=== PATIENT | female | born 1995 | race American Indian/Alaskan Native ===

== ENCOUNTER 2017-11-05 17:35 | Emergency (ER) | payer OTHER ==
[2017-11-05 18:04] VITALS: BP 123/72
[2017-11-05] MEDS ORDERED: TORADOL IM ONE (18:58)
--- NOTE | 2017-11-05 18:58 | Emergency Department Report ---
ED Back Pain/Injury HPI - General Chief Complaint: Back Pain/Injury Stated Complaint: MAJOR BACK PAIN Time Seen by Provider: 11/05/17 18:58 Source: patient Limitations: No Limitations - History of Present Illness Initial Comments: This is a 22-year-old female nontoxic, well nourished in appearance, no acute signs of distress presents to the ED with c/o of acute on chronic lower back pain. Patient stated that the past 3 days she was moving and developed this pain at work. Patient states has history of sciatica nerve pain which is similar symptoms as today. Patient states that pain radiates through to his left lower extremity. Patient denies any trauma. Denies any bladder or bowel instability. Patient denies any urinary symptoms. Denies any fever, chills, nausea, vomiting, headache, stiff neck, chest pain or shortness of breath. Patient denies any numbness or tingling. Denies any allergies. Denies significant past medical history. MD Complaint: back pain -: days(s) (3) Similar Symptoms Previously: Yes Place: work Radiation: left leg Severity: mild Severity scale (0 -10): 8 Quality: aching Consistency: constant Improves With: immobilization, supine, sitting upright Worsens With: movement, walking Context: while lifting, turning/twisting Associated Symptoms: denies other symptoms. denies: confusion, weakness, chest pain, numbness, difficulty walking, cough, difficulty urinating, diaphoresis, incontinence, fever/chills, constipation, headaches, abdominal pain, loss of appetite, malaise, nausea/vomiting, rash, seizure, shortness of breath, syncope - Related Data Previous Rx's Medication Instructions Recorded Last Taken Type Cyclobenzaprine [Flexeril] 10 mg PO QHS PRN #10 tablet 11/05/17 Unknown Rx Ibuprofen [Motrin] 600 mg PO Q8H PRN #30 tablet 11/05/17 Unknown Rx Allergies Allergy/AdvReac Type Severity Reaction Status Date / Time No Known Allergies Allergy Unverified 11/05/17 18:02 ED Review of Systems ROS: Stated complaint: MAJOR BACK PAIN Other details as noted in HPI Constitutional: denies: chills, fever Eyes: denies: eye pain, eye discharge, vision change ENT: denies: ear pain, throat pain Respiratory: denies: cough, shortness of breath, wheezing Cardiovascular: denies: chest pain, palpitations Endocrine: no symptoms reported Gastrointestinal: denies: abdominal pain, nausea, diarrhea Genitourinary: denies: urgency, dysuria, discharge Musculoskeletal: back pain. denies: joint swelling, arthralgia Skin: denies: rash, lesions Neurological: denies: headache, weakness, paresthesias Psychiatric: denies: anxiety, depression Hematological/Lymphatic: denies: easy bleeding, easy bruising ED Past Medical Hx - Past Medical History Previous Medical History?: No - Surgical History Past Surgical History?: No - Social History Smoking Status: Never Smoker Substance Use Type: None - Medications Home Medications: Home Medications Medication Instructions Recorded Confirmed Last Taken Type Cyclobenzaprine [Flexeril] 10 mg PO QHS PRN #10 tablet 11/05/17 Unknown Rx Ibuprofen [Motrin] 600 mg PO Q8H PRN #30 tablet 11/05/17 Unknown Rx ED Physical Exam - General Limitations: No Limitations General appearance: alert, in no apparent distress - Head Head exam: Present: atraumatic, normocephalic - Eye Eye exam: Present: normal appearance Pupils: Present: normal accommodation - ENT ENT exam: Present: normal exam, mucous membranes moist - Neck Neck exam: Present: normal inspection, full ROM - Respiratory Respiratory exam: Present: normal lung sounds bilaterally. Absent: respiratory distress - Cardiovascular Cardiovascular Exam: Present: regular rate, normal rhythm. Absent: systolic murmur, diastolic murmur, rubs, gallop - GI/Abdominal GI/Abdominal exam: Present: soft, normal bowel sounds - Extremities Exam Extremities exam: Present: normal inspection, full ROM, normal capillary refill. Absent: tenderness, joint swelling - Back Exam Back exam: Present: normal inspection, full ROM, paraspinal tenderness (lumbar paraspinal). Absent: tenderness, CVA tenderness (R), CVA tenderness (L), muscle spasm, vertebral tenderness, rash noted - Expanded Back Exam Expanded Back exam: Absent: saddle anesthesia Back exam: Negative Straight Leg Raising: Left, Right - Neurological Exam Neurological exam: Present: alert, oriented X3, normal gait - Psychiatric Psychiatric exam: Present: normal affect, normal mood - Skin Skin exam: Present: warm, dry, intact, normal color. Absent: rash ED Course Vital Signs 11/05/17 11/05/17 18:02 19:32 Temperature 98.5 F Pulse Rate 83 Respiratory 18 15 Rate Blood Pressure 123/72 O2 Sat by Pulse 100 Oximetry - Reevaluation(s) Reevaluation #1: 11/05/17 19:35 Patient is speaking in full sentences with no signs of distress noted. ED Medical Decision Making - Medical Decision Making This is a 22-year-old female that presents with low back strain. Patient is stable was examined by me. There is no spinal tenderness. There is no cauda equina syndrome during examination. No bladder or bowel instability. Patient received Toradol 30 mg IM in the ED which preceded his symptoms has resolved and subsided. Patient is discharged with muscle relaxant and Motrin. Patient was instructed not to operate any machinery while taking muscle relaxant as they cause her drowsiness. Patient was referred to Follow-up with a primary care doctor in 3-5 days or if symptoms worsen and continue return to emergency room as soon as possible. At time of discharge, the patient does not seem toxic or ill in appearance. No acute signs of distress noted. Patient agrees to discharge treatment plan of care. No further questions noted by the patient. This chart is dictated with using [employer] Critical care attestation.: If time is entered above; I have spent that time in minutes in the direct care of this critically ill patient, excluding procedure time. ED Disposition Clinical Impression: Low back strain Qualifiers: Encounter type: initial encounter Qualified Code(s): S39.012A - Strain of muscle, fascia and tendon of lower back, initial encounter Disposition: DC-01 TO HOME OR SELFCARE Is pt being admited?: No Does the pt Need Aspirin: No Condition: Stable Instructions: Low Back Strain (ED), Cyclobenzaprine (By mouth), Ibuprofen (By mouth) Additional Instructions: Follow-up with your primary care doctor in 3-5 days or if symptoms worsen such as bladder or bowel stability, chest pain, short of breath, numbness or tingling sensation in extremities, headache, dizziness, visual changes, nausea vomiting, or abdominal pain, return back to emergency room as was possible. Take ibuprofen and Flexeril as prescribed. Do not operate heavy machinery while taking Flexeril due to sedation Prescriptions: Cyclobenzaprine [Flexeril] 10 mg PO QHS PRN #10 tablet PRN Reason: Muscle Spasm Ibuprofen [Motrin] 600 mg PO Q8H PRN #30 tablet PRN Reason: Pain Referrals: PRIMARY CARE, [Primary Care Provider] - 3-5 Days ABHILASH VILLAREAL MD [Staff Physician] - 3-5 Days [facility] [Outside] - 3-5 Days [facility] [Outside] - 3-5 Days Forms: Work/School Release Form(ED)
== END 2017-11-05 19:45 | disposition home or self-care (01) ==
LOC: ED 17:35
DX: S39.012A Strain of muscle, fascia and tendon of lower back, initial encounter (principal); X58.XXXA Exposure to other specified factors, initial encounter; Y93.89 Activity, other specified; Y99.8 Other external cause status; Y92.89 Other specified places as the place of occurrence of the external cause
CPT/HCPCS: 99282; J1885

== ENCOUNTER 2020-05-08 07:37 | Emergency (ER) | payer OTHER ==
[2020-05-08] MEDS ORDERED: ONDANSETRON 4 MG/2 ML INJ IV ONE (08:30)
[2020-05-08 08:33] LABS: Hematocrit 29.3 % (30.3-42.9); Hemoglobin 9.8 gm/dl (10.1-14.3); Mean Corpuscular HGB Conc 34 % (30-34); Mean Corpuscular Volume 81 fl (79-97); Platelet Count 232 K/mm3 (140-440); Red Blood Count 3.62 M/mm3 (3.65-5.03); Red Cell Distribution Width 16.9 % (13.2-15.2)
[2020-05-08] MEDS ORDERED: SODIUM CHLORIDE 0.9% 1000 ML 1,000 ML IV ONE ×2 (08:34→10:27)
--- NOTE | 2020-05-08 08:38 | Emergency Department Report ---
HPI - General Chief Complaint: Vaginal Bleeding Time Seen by Provider: 05/08/20 08:22 - HPI HPI: This is a 24-year-old -Swiss female presents to the emergency department with a complaint of some abdominal and pelvic cramping, and vaginal bleeding. The patient took "an pill 2 weeks ago" when the patient was about 10 weeks at that time. She cannot remember the name of the medication but says she got it from the [facility] in [place]. Since taking that medication the patient has had moderate to heavy vaginal bleeding over the past 2 weeks and intermittent sharp cramping pains. The patient decided to come in to be seen today because she has started to feel lightheaded. She denies any other past medical history. With that she is or was G1, P0. Her primary care physician is a Dr. Bourgeois, but she has not seen them regarding her symptoms. She is a tobacco smoker. She has not taken anything for symptoms prior to presentation today. ED Past Medical Hx - Past Medical History Previous Medical History?: No - Surgical History Past Surgical History?: No - Social History Smoking Status: Current Every Day Smoker Substance Use Type: None - Medications Home Medications: Home Medications Medication Instructions Recorded Confirmed Last Taken Type Methylergonovine [Methergine] 0.2 mg PO Q6H #7 tablet 05/08/20 Unknown Rx ED Review of Systems ROS: Stated complaint: MORNING AFTER PILL/BLOOD LOST Other details as noted in HPI Comment: All other systems reviewed and negative Constitutional: denies: chills, fever Eyes: denies: eye pain, vision change ENT: denies: ear pain, throat pain Respiratory: denies: cough, shortness of breath Cardiovascular: denies: chest pain, palpitations Gastrointestinal: abdominal pain, nausea Genitourinary: other (vaginal bleeding, pelvic cramping). denies: dysuria, discharge Musculoskeletal: denies: back pain, arthralgia Skin: denies: rash, lesions Neurological: other (lightheaded). denies: headache Physical Exam - Physical Exam Vital Signs: Vital Signs 05/08/20 05/08/20 07:43 08:19 Temperature 98.5 F Pulse Rate 98 H 107 H Respiratory 20 16 Rate Blood Pressure 126/73 Blood Pressure 136/87 [Left] O2 Sat by Pulse 100 98 Oximetry Physical Exam: GENERAL: The patient is well-developed well-nourished. HENT: Normocephalic. Atraumatic. Patient has moist mucous membranes. EYES: Extraocular motions are intact. NECK: Supple. Trachea is midline. CHEST/LUNGS: Clear to auscultation. There is no respiratory distress noted. HEART/CARDIOVASCULAR: Regular. There is no tachycardia. There is no murmur. ABDOMEN: Abdomen is soft, nontender. No guarding. Patient has normal bowel sounds. SKIN: Skin is warm and dry. NEURO: The patient is awake, alert, and oriented. The patient is cooperative. The patient has no focal neurologic deficits. Normal speech. MUSCULOSKELETAL: There is no tenderness or deformity. There is no limitation range of motion. PELVIC: Moderate vaginal bleeding seen with clots. ED Course Vital Signs 05/08/20 05/08/20 07:43 08:19 Temperature 98.5 F Pulse Rate 98 H 107 H Respiratory 20 16 Rate Blood Pressure 126/73 Blood Pressure 136/87 [Left] O2 Sat by Pulse 100 98 Oximetry - Consultations Consultation #1: 05/08/20 11:52 I spoke with the [facility] on-call, Dr. Bingham, regarding the patient's presentation, lab and imaging results. She has recommended that the patient be prescribed Methergine 0.2 mg every 6 hours x 48 hours and then the patient can follow-up with Dr. Saint Mcguire in her office on Sunday. However the patient should return to the emergency department with any increased vaginal bleeding, worsening of her symptoms or any acute distress. ED Medical Decision Making - Lab Data Result diagrams: 05/08/20 10:17 05/08/20 08:21 Lab Results 05/08/20 05/08/20 05/08/20 Range/Units 08:21 08:21 08:21 WBC 12.3 H (4.5-11.0) K/mm3 RBC 3.62 L (3.65-5.03) M/mm3 Hgb 9.8 L (10.1-14.3) gm/dl Hct 29.3 L (30.3-42.9) % MCV 81 (79-97) fl MCH 27 L (28-32) pg MCHC 34 (30-34) % RDW 16.9 H (13.2-15.2) % Plt Count 232 (140-440) K/mm3 Lymph % (Auto) 12.8 L (13.4-35.0) % [place] % (Auto) 6.4 (0.0-7.3) % Eos % (Auto) 0.4 (0.0-4.3) % Baso % (Auto) 0.3 (0.0-1.8) % Lymph # (Auto) 1.5 (1.2-5.4) K/mm3 [place] # (Auto) 0.8 (0.0-0.8) K/mm3 Eos # (Auto) 0.0 (0.0-0.4) K/mm3 Baso # (Auto) 0.0 (0.0-0.1) K/mm3 Seg Neutrophils % 80.1 H (40.0-70.0) % Seg Neutrophils # 9.4 H (1.8-7.7) K/mm3 PT 13.7 (12.2-14.9) Sec. INR 1.07 (0.87-1.13) Sodium 133 L (137-145) mmol/L Potassium 3.7 (3.6-5.0) mmol/L Chloride 101.3 (98-107) mmol/L Carbon Dioxide 24 (22-30) mmol/L Anion Gap 11 mmol/L BUN 8 (7-17) mg/dL Creatinine 0.6 (0.6-1.2) mg/dL Estimated GFR > 60 ml/min BUN/Creatinine Ratio 13 % Glucose 123 H (65-100) mg/dL Calcium 8.6 (8.4-10.2) mg/dL HCG, Quant (0-4) mIU/mL Blood Type Ord Rhogam Gestat Weeks WEEKS 05/08/20 05/08/20 05/08/20 Range/Units 08:21 08:21 10:17 WBC (4.5-11.0) K/mm3 RBC (3.65-5.03) M/mm3 Hgb 8.7 L (10.1-14.3) gm/dl Hct 27.0 L (30.3-42.9) % MCV (79-97) fl MCH (28-32) pg MCHC (30-34) % RDW (13.2-15.2) % Plt Count (140-440) K/mm3 Lymph % (Auto) (13.4-35.0) % [place] % (Auto) (0.0-7.3) % Eos % (Auto) (0.0-4.3) % Baso % (Auto) (0.0-1.8) % Lymph # (Auto) (1.2-5.4) K/mm3 [place] # (Auto) (0.0-0.8) K/mm3 Eos # (Auto) (0.0-0.4) K/mm3 Baso # (Auto) (0.0-0.1) K/mm3 Seg Neutrophils % (40.0-70.0) % Seg Neutrophils # (1.8-7.7) K/mm3 PT (12.2-14.9) Sec. INR (0.87-1.13) Sodium (137-145) mmol/L Potassium (3.6-5.0) mmol/L Chloride (98-107) mmol/L Carbon Dioxide (22-30) mmol/L Anion Gap mmol/L BUN (7-17) mg/dL Creatinine (0.6-1.2) mg/dL Estimated GFR ml/min BUN/Creatinine Ratio % Glucose (65-100) mg/dL Calcium (8.4-10.2) mg/dL HCG, Quant 6759 H (0-4) mIU/mL Blood Type O POSITIVE Ord Rhogam Gestat Weeks Rh pos WEEKS - EKG Data -: EKG Interpreted by [place] EKG shows normal: sinus rhythm, axis, intervals, QRS complexes, ST-T waves Rate: normal - EKG Data When compared to previous EKG there are: previous EKG unavailable Interpretation: normal EKG - Radiology Data Radiology results: report reviewed ULTRASOUND OBSTETRIC INDICATION: Heavy vaginal bleeding, pill 2 weeks ago. TECHNIQUE: Transabdominal. COMPARISON: None available. FINDINGS: GESTATIONAL SAC: None seen. YOLK SAC: None seen. EMBRYO/FETUS: None seen. UTERUS/ADNEXA: The individual stripe is thickened and measures 22 mm with heterogeneous material noted along the endometrial canal, possibly representing blood products. No other significant abnormality. FREE FLUID: None. ADDITIONAL FINDINGS: None. IMPRESSION: 1. No intrauterine or ectopic is visualized sonographically. 2. Endometrial thickening with possible blood products along the endometrial canal. - Medical Decision Making This patient presents to the emergency department with a complaint of a 2-week history of vaginal bleeding and some pelvic cramping after taking an abortive pill 2 weeks ago. The patient was about 10 weeks at that time. The patient did have a moderate to large amount of vaginal bleeding upon arrival to the emergency department. Patient was given some IV fluid resuscitation, IV analgesia. Labs did show some anemia with an initial hemoglobin of 9.8 and the patient had a hemoglobin of 8.7, two hours later. Some of that drop in hemoglobin is due to her blood loss, but some of it is also dilutional after the patient received more than 1 L of IV fluid resuscitation. The patient had a beta-hCG of about 6500. A transvaginal/obstetrical ultrasound was completed that showed some blood products within the uterus but otherwise there were no retained products of conception, mass, or any other acute process seen. Patient was reevaluated multiple times over multiple hours and is feeling improved. The lightheadedness has resolved. The vaginal bleeding has slowed down to mild to moderate, and the patient's pelvic cramping appears to have improved if not resolved at this time. Vital signs have been reassuring throughout her ED course including being afebrile. As per the consultation section, I spoke with the [facility] on-call who recommends Methergine every 6 hours x48 hours and the patient can follow-up on Sunday in her clinic. She was given the first dose of Methergine in the emergency department. The patient has also been instructed to return to the closest emergency department with any increased vaginal bleeding, increased pelvic pain, worsening of her symptoms, or with any acute distress. All questions were answered and the patient understands and agrees to the plan. Critical Care Time: No Critical care attestation.: If time is entered above; I have spent that time in minutes in the direct care of this critically ill patient, excluding procedure time. ED Disposition Clinical Impression: Post- complication, Episode of heavy vaginal bleeding Anemia Qualifiers: Anemia type: unspecified type Qualified Code(s): D64.9 - Anemia, unspecified Disposition: DC-01 TO HOME OR SELFCARE Is pt being admited?: No Condition: Stable Instructions: Methylergonovine tablets, Abnormal Uterine Bleeding Additional Instructions: You received your first Methergine pill here today around 12 PM. Please start your prescription of Methergine at around 6 PM this evening. I have given you a referral for Dr. St Maynor, a local [facility], with whom I discussed your symptoms and emergency department course. Please follow-up with Dr. Bingham on Sunday. However, return to the closest emergency department with any increased vaginal bleeding, worsening of your symptoms, development of shortness of breath, or with any acute distress. Prescriptions: Methylergonovine [Methergine] 0.2 mg PO Q6H #7 tablet Referrals: JAMILA BINGHAM MD [Staff Physician] - 05/10/20 Time of Disposition: 11:56
[2020-05-08 08:47] LABS: INR 1.07 (0.87-1.13)
[2020-05-08 08:52] LABS: Blood Urea Nitrogen 8 mg/dL (7-17); Calcium 8.6 mg/dL (8.4-10.2); Hemolysis Index 11
[2020-05-08 08:54] LABS: BUN/Creatinine Ratio 13
[2020-05-08 08:57] LABS: Basophils % (Auto) 0.3 % (0.0-1.8); Eosinophils % (Auto) 0.4 % (0.0-4.3); Lymphocytes # (Auto) 1.5 K/mm3 (1.2-5.4); Lymphocytes % (Auto) 12.8 % (13.4-35.0); Monocytes # (Auto) 0.8 K/mm3 (0.0-0.8); Monocytes % (Auto) 6.4 % (0.0-7.3)
[2020-05-08] MEDS ORDERED: ACETAMINOPHEN 325 MG TAB PO ONE (09:51)
[2020-05-08] MEDS ORDERED: fentaNYL 100 MCG/2 ML INJ IV ONE ×2 (10:26→12:02)
[2020-05-08 10:35] LABS: Hemoglobin 8.7 gm/dl (10.1-14.3)
--- NOTE | 2020-05-08 11:15 | Ultrasound Report ---
ULTRASOUND OBSTETRIC INDICATION: Heavy vaginal bleeding, pill 2 weeks ago. TECHNIQUE: Transabdominal. COMPARISON: None available. FINDINGS: GESTATIONAL SAC: None seen. YOLK SAC: None seen. EMBRYO/FETUS: None seen. UTERUS/ADNEXA: The individual stripe is thickened and measures 22 mm with heterogeneous material note d along the endometrial canal, possibly representing blood products. No other significant abnormality . FREE FLUID: None. ADDITIONAL FINDINGS: None. IMPRESSION: 1. No intrauterine or ectopic is visualized sonographically. 2. Endometrial thickening with possible blood products along the endometrial canal. Signer Name: Boris Richards MD Signed: 05/08/2020 11:10 AM Workstation Name: [id number]
[2020-05-08 11:51] VITALS: BP 126/68
[2020-05-08] MEDS ORDERED: METHYLERGONOVINE 0.2 MG TABLET PO ONE (11:52)
== END 2020-05-08 12:15 | disposition home or self-care (01) ==
LOC: ED 07:37
DX: O03.80 Unspecified complication following complete or unspecified spontaneous abortion (principal); N93.9 Abnormal uterine and vaginal bleeding, unspecified; D64.9 Anemia, unspecified; F17.200 Nicotine dependence, unspecified, uncomplicated; Z79.899 Other long term (current) drug therapy
CPT/HCPCS: 36415; 76801; 80048; 84702; 85014; 85018; 85025; 85610; 86900; 86901; 93005; 96361; 96374; 96375; 96376; 99284; J2405; J3010; J7030

== ENCOUNTER 2020-06-02 07:52 | Day surgery (SDC) | payer OTHER ==
[~2020-06-02 07:52] MED LIST: LACTATED RINGERS 1,000 ML IV SCH; MIDAZOLAM 2 MG/2 ML INJ IV NR
[2020-06-02] MEDS ORDERED: ONDANSETRON 4 MG/2 ML INJ IV PRN (09:25)
[2020-06-02] MEDS ORDERED: fentaNYL 100 MCG/2 ML INJ IV PRN (09:25)
--- NOTE | 2020-06-02 09:25 | Anesthesia Consultation ---
Anesthesia Consult and Med Hx Date of service: 06/02/20 - Airway Anesthetic Teeth Evaluation: Good ROM Head & Neck: Adequate Mental/Hyoid Distance: Adequate Mallampati Class: Class II Intubation Access Assessment: Probably Good - Pre-Operative Health Status ASA Pre-Surgery Classification: ASA2 Proposed Anesthetic Plan: General - Pulmonary Hx Smoking: Yes Hx Respiratory Symptoms: No - Cardiovascular System Hx Hypertension: No - Central Nervous System CVA: No - Endocrine Hx Renal Disease: No Hx Liver Disease: No Hx Insulin Dependent Diabetes: No Hx Non-Insulin Dependent Diabetes: No Hx Thyroid Disease: No - Other Systems Hx Obesity: Yes (BMI 37) - Additional Comments Anesthesia Medical History Comments: No hx anesthetic complications.
--- NOTE | 2020-06-02 09:25 | Anesthesia Day of Surgery ---
Anesthesia Day of Surgery - Day of Surgery Patient Examined: Yes Patient H&P Reviewed: Yes Patient is NPO: Yes
--- NOTE | 2020-06-02 09:33 | Short Stay Summary ---
Short Stay Documentation Date of service: 06/02/20 Narrative H&P: 24-year-old -0-1-0 who is status post an elective termination. The patient had findings of continued vaginal bleeding after procedure and ultrasound findings consistent with retained products of conception. Patient elected to undergo surgical management. - History Principal diagnosis: Retained products of conception Past Medical History: No medical history Past Surgical History: Other ( termination) Social history: single - Allergies and Medications Current Medications: Allergies No Known Allergies Allergy (Verified 06/01/20 08:17) Home Medications Medication Instructions Recorded Confirmed Last Taken Type Ferrous Sulfate [Feosol] 325 mg PO BID 06/01/20 06/02/20 3 Days Ago History ~05/30/20 Active Medications Fentanyl (Fentanyl 100 Mcg/2 Ml Inj) 50 mcg IV Q5MIN PRN PRN Reason: Pain , Severe (7-10) Lactated Ringer's (Lactated Ringers) 1,000 mls @ 100 mls/hr IV DIRECT DELIA Stop: 06/02/20 23:59 Last Admin: 06/02/20 09:10 Dose: 100 mls/hr Documented by: Midazolam HCl (Midazolam 2 Mg/2 Ml Inj) 2 mg IV PREOP NR Stop: 06/02/20 23:00 Last Admin: 06/02/20 09:23 Dose: 2 mg Documented by: Ondansetron HCl (Ondansetron 4 Mg/2 Ml Inj) 4 mg IV ONCE PRN PRN Reason: Nausea And Vomiting - Physical exam General appearance: no acute distress Integumentary: no rash HEENT: Atraumatic Lungs: Clear to auscultation Breasts: deferred Heart: Regular rate Gastrointestinal: normal Female Genitourinary: deferred - Brief post op/procedure progress note Date of procedure: 06/02/20 Pre-op diagnosis: Retained products of conception Post-op diagnosis: same Procedure: Suction dilatation and curettage Anesthesia: MAC Surgeon: JAMILA SHAW Estimated blood loss: other (300 mL) Pathology: list (Retained products of conception) Specimen disposition: to lab Condition: stable - Hospital course Hospital course: The patient was admitted the day of surgery was scheduled to undergo a suction dilatation and curettage for retained products of conception. The patient's preoperative hemoglobin was found to be significantly anemic requiring the transfusion of 2 units of blood products. The patient underwent her surgery and her postoperative course was uneventful. - Disposition Condition at discharge: Good Disposition: DC-01 TO HOME OR SELFCARE - Discharge Diagnoses (1) Retained products of conception Status: Acute (2) Anemia associated with acute blood loss Status: Acute Short Stay Discharge Plan Activity: other (Pelvic rest for 1 week) Diet: regular Additional Instructions: Schedule follow-up in 2 to 4 weeks Prescriptions: Docusate Sodium [Colace] 100 mg PO BID PRN #30 capsule PRN Reason: Constipation Ferrous Sulfate [Feosol 325 MG tab] 325 mg PO BID #60 tablet Ibuprofen [Motrin] 800 mg PO Q8HR PRN #30 tablet PRN Reason: Pain , Severe (7-10) HYDROcodone/APAP 5-325 [[place] 5/325] 1 each PO Q6HR PRN #15 tablet PRN Reason: Pain
[2020-06-02 09:39] LABS: Mean Corpuscular HGB Conc 32 % (30-34); Mean Corpuscular Volume 72 fl (79-97); Platelet Count 294 K/mm3 (140-440); Red Blood Count 1.98 M/mm3 (3.65-5.03)
[2020-06-02 09:46] LABS: Red Cell Distribution Width 21.3 % (13.2-15.2)
[2020-06-02 09:50] LABS: Hematocrit 14.2 % (30.3-42.9); Hemoglobin 4.5 gm/dl (10.1-14.3)
[2020-06-02] MEDS ORDERED: SODIUM CHLORIDE 0.9% 500 ML 500 ML IV NR (09:54)
[2020-06-02] MEDS ORDERED: fentaNYL 100 MCG/2 ML INJ ONE ×2 (10:35→11:22)
[2020-06-02] MEDS ORDERED: propofoL 200 MG/20 ML VIAL IV ONE (10:35)
[2020-06-02] MEDS ORDERED: LIDOCAINE PF 100 MG/5 ML (CARDIAC SYRINGE) IV ONE (10:44)
[2020-06-02] MEDS ORDERED: ONDANSETRON 4 MG/2 ML INJ ONE (11:01)
[2020-06-02] MEDS ORDERED: dexAMETHasone 20 MG/5 ML VIAL ONE (11:01)
[2020-06-02] MEDS ORDERED: METHYLERGONOVINE MALEATE 0.2 MG/ML VIAL IM ONE ×2 (11:18→11:47)
--- NOTE | 2020-06-02 11:36 | Operative Report ---
Operative Report Operative Report: Date of surgery: June 02, 2020 Preoperative diagnosis: Retained products of conception Postoperative diagnosis: Same as above Procedure: Suction dilatation and curettage Surgeon: Laurie Andrew M.D. Anesthesia: Gen. endotracheal anesthesia Estimated blood loss: 300 mL Findings: Products of conception Indication: 24-year-old -0-1-0 with a history of a termination that is complicated by findings of retained products of conception and abnormal uterine bleeding. The patient's preoperative hemoglobin was found to be 4.5. The patient was transfused 2 units packed red blood cells. Procedure: The patient was taken to the operating room and given general endotracheal anesthesia without complication. The patient is prepped and draped in a normal sterile fashion. A bivalve speculum was placed in the patient's vagina and a single-tooth tenaculums placed on the anterior lip of the cervix. The uterine cavity was then sounded. The cervical os was then dilated with graduated dilators. A number 8 [place] curved cannula was placed to suction and found to be adequate. The cannula was then gently inserted into the dilated cervical os. Evacuation of the uterine contents were performed. Sharp curettage and endometrial surface was performed until cry was achieved. The cannula was then gently reinserted into the uterine cavity to evacuate any additional contents. After removal of the cannula there was no evidence of any active bleeding. The vaginal instruments were then removed atraumatically. The patient was then successfully extubated and taken to the recovery room in stable condition. All sponge laps and needle counts were correct x2. Pathology consi sted of products of conception.
[2020-06-02] MEDS ORDERED: SODIUM CHLORIDE 0.9% IRR 1,500 ML BOTTLE IR ONE (11:47)
[2020-06-02 13:26] VITALS: BP 133/73
--- NOTE | 2020-06-02 15:18 | Post Anesthesia Evaluation ---
- Post Anesthesia Evaluation Patient Participated: Yes Airway Patent: Yes Stable Respiratory Function: Yes Nausea/Vomiting: No Temp > 96.8F: Yes Pain Manageable: Yes Adequeate Hydration: Yes Anesthesia Complications: No Other Comments: Received 2 units pRBCs in PACU with increase in BP and resolution of low grade tachycardia noted.
== END 2020-06-02 14:05 | disposition home or self-care (01) ==
LOC: OR 07:52
PROVIDERS: ATTEND Obstetrics & Gynecology
DX: O02.89 Other abnormal products of conception (principal); F17.210 Nicotine dependence, cigarettes, uncomplicated; D62 Acute posthemorrhagic anemia; G43.909 Migraine, unspecified, not intractable, without status migrainosus; Z79.899 Other long term (current) drug therapy; Z98.890 Other specified postprocedural states
CPT/HCPCS: 36415; 59812; 85027; 86850; 86900; 86901; 86920; 88305; J1100; J2001; J2210; J2250; J2405; J2704; J3010; J7040; J7120; P9016

== ENCOUNTER 2020-06-24 22:16 | Emergency (ER) | payer OTHER ==
[2020-06-24 23:10] VITALS: BP 125/61
[2020-06-24 23:44] LABS: Bacteria,Urine 1+ /HPF (Negative); Bilirubin,Urine NEG (Negative); Blood,Urine NEG (Negative); Color,Urine Yellow (Yellow); Mucus,Urine FEW /HPF; Protein,Urine <15 mg/dL mg/dL (Negative)
[2020-06-24 23:45] LABS: HCG Qualitative,Urine Negative (Negative)
[2020-06-24 23:54] LABS: Basophils # (Auto) 0.1 K/mm3 (0.0-0.1); Basophils % (Auto) 0.9 % (0.0-1.8); Eosinophils # (Auto) 0.1 K/mm3 (0.0-0.4); Eosinophils % (Auto) 1.5 % (0.0-4.3); Hematocrit 25.4 % (30.3-42.9); Hemoglobin 7.6 gm/dl (10.1-14.3); Lymphocytes % (Auto) 32.5 % (13.4-35.0); Mean Corpuscular HGB Conc 30 % (30-34); Mean Corpuscular Volume 71 fl (79-97); Monocytes # (Auto) 0.8 K/mm3 (0.0-0.8); Monocytes % (Auto) 8.5 % (0.0-7.3); Platelet Count 385 K/mm3 (140-440); Red Blood Count 3.58 M/mm3 (3.65-5.03)
[2020-06-25 00:07] LABS: Red Cell Distribution Width 24.2 % (13.2-15.2)
[2020-06-25] MEDS ORDERED: HYDROcodone/ACETAMINOPHEN 10-325MG TAB PO ONE (00:16)
[2020-06-25 00:28] LABS: Alanine Aminotransferase 11 units/L (7-56); Albumin 4.2 g/dL (3.9-5); BUN/Creatinine Ratio 16; Blood Urea Nitrogen 11 mg/dL (7-17); Calcium 8.8 mg/dL (8.4-10.2); Hemolysis Index 0
--- NOTE | 2020-06-25 00:31 | Emergency Department Report ---
ED Abdominal Pain HPI - General Chief Complaint: Abdominal Pain Stated Complaint: RIGHT SIDE PAIN Time Seen by Provider: 06/25/20 00:10 Source: patient Mode of arrival: Ambulatory Limitations: No Limitations - History of Present Illness Initial Comments: This is a 24-year-old female nontoxic, well nourished in appearance, no acute signs of distress presents to the ED with c/o of intermittent RUQ pains x several days. Patient denies any nausea vomiting. Patient describes abdominal pain as cramping and aching with level of 3/10 intermittently. Currently patient denies any pain. Stated has radiation during pain to right flank area. Patient denies chest pain, short of breath, fever, nausea, vomiting, diarrhea, hemoptysis, blood in stool, chills, headache, stiff neck, numbness or tingling. Patient denies any diarrhea or constipation. Denies any blood in stool. Patient denies any recent travels. Patient denies any allergies or significant past medical history MD Complaint: abdominal pain Location: RUQ Radiation: R flank Severity: mild Severity scale (0 -10): 3 Quality: cramping Consistency: intermittent, now resolved Improves With: nothing Worsens With: nothing Associated Symptoms: denies other symptoms. denies: nausea, vomiting, diarrhea, fever, chills, constipation, dysuria, hematemesis, hematochezia, melena, hematuria, anorexia, syncope - Related Data Home Medications Medication Instructions Recorded Confirmed Last Taken Ferrous Sulfate [Feosol] 325 mg PO BID 06/01/20 06/02/20 3 Days Ago ~05/30/20 Previous Rx's Medication Instructions Recorded Last Taken Type Docusate Sodium [Colace] 100 mg PO BID PRN #30 capsule 06/02/20 Unknown Rx Ferrous Sulfate [Feosol 325 MG tab] 325 mg PO BID #60 tablet 06/02/20 Unknown Rx HYDROcodone/APAP 5-325 [[place] 1 each PO Q6HR PRN #15 tablet 06/02/20 Unknown Rx 5/325] Ibuprofen [Motrin] 800 mg PO Q8HR PRN #30 tablet 06/02/20 Unknown Rx Naproxen 500 mg PO Q12H PRN #12 tablet 06/25/20 Unknown Rx Allergies Allergy/AdvReac Type Severity Reaction Status Date / Time No Known Allergies Allergy Verified 06/01/20 08:17 ED Review of Systems ROS: Stated complaint: RIGHT SIDE PAIN Other details as noted in HPI Comment: All other systems reviewed and negative Constitutional: denies: chills, fever Eyes: denies: eye pain, eye discharge, vision change ENT: denies: ear pain, throat pain Respiratory: denies: cough, shortness of breath, wheezing Cardiovascular: denies: chest pain, palpitations Endocrine: no symptoms reported Gastrointestinal: abdominal pain. denies: nausea, vomiting, diarrhea, constipation, hematemesis, melena, hematochezia Genitourinary: denies: urgency, dysuria, discharge Musculoskeletal: denies: back pain, joint swelling, arthralgia Skin: denies: rash, lesions Neurological: denies: headache, weakness, paresthesias Psychiatric: denies: anxiety, depression Hematological/Lymphatic: denies: easy bleeding, easy bruising ED Past Medical Hx - Past Medical History Previous Medical History?: Yes Hx Hypertension: No Hx Liver Disease: No Hx Renal Disease: No Hx Headaches / Migraines: Yes (Migraines) - Surgical History Past Surgical History?: Yes Additional Surgical History: D&C - Social History Smoking Status: Current Every Day Smoker Substance Use Type: Marijuana - Medications Home Medications: Home Medications Medication Instructions Recorded Confirmed Last Taken Type Ferrous Sulfate [Feosol] 325 mg PO BID 06/01/20 06/02/20 3 Days Ago History ~05/30/20 Docusate Sodium [Colace] 100 mg PO BID PRN #30 capsule 06/02/20 Unknown Rx Ferrous Sulfate [Feosol 325 MG tab] 325 mg PO BID #60 tablet 06/02/20 Unknown Rx HYDROcodone/APAP 5-325 [[place] 1 each PO Q6HR PRN #15 tablet 06/02/20 Unknown Rx 5/325] Ibuprofen [Motrin] 800 mg PO Q8HR PRN #30 tablet 06/02/20 Unknown Rx Naproxen 500 mg PO Q12H PRN #12 tablet 06/25/20 Unknown Rx ED Physical Exam - General Limitations: No Limitations General appearance: alert, in no apparent distress - Head Head exam: Present: atraumatic, normocephalic - Eye Eye exam: Present: normal appearance - Neck Neck exam: Present: normal inspection, full ROM. Absent: tenderness, men ingismus, lymphadenopathy - Respiratory Respiratory exam: Present: normal lung sounds bilaterally. Absent: respiratory distress, wheezes, rales, rhonchi, stridor, chest wall tenderness, accessory muscle use, decreased breath sounds, prolonged expiratory - Cardiovascular Cardiovascular Exam: Present: regular rate, normal rhythm, normal heart sounds. Absent: bradycardia, tachycardia, irregular rhythm, systolic murmur, diastolic murmur, rubs, gallop - GI/Abdominal GI/Abdominal exam: Present: soft, normal bowel sounds. Absent: distended, tenderness, guarding, rebound, rigid, diminished bowel sounds - Extremities Exam Extremities exam: Present: normal inspection, full ROM - Back Exam Back exam: Present: normal inspection, full ROM. Absent: tenderness, CVA tenderness (R), CVA tenderness (L), muscle spasm, paraspinal tenderness, vertebral tenderness, rash noted - Neurological Exam Neurological exam: Present: alert, oriented X3, normal gait - Psychiatric Psychiatric exam: Present: normal affect, normal mood - Skin Skin exam: Present: warm, dry, intact, normal color. Absent: rash ED Course Vital Signs 06/24/20 23:06 Temperature 99.4 F Pulse Rate 85 Respiratory 18 Rate Blood Pressure 125/61 O2 Sat by Pulse 100 Oximetry - Reevaluation(s) Reevaluation #1: 06/25/20 00:31 Patient is speaking in full sentences with no signs of distress noted. ED Medical Decision Making - Lab Data Result diagrams: 06/24/20 23:28 06/24/20 23:28 Lab Results 06/24/20 06/24/20 06/24/20 Range/Units 23:22 23:28 23:28 WBC 9.1 (4.5-11.0) K/mm3 RBC 3.58 L (3.65-5.03) M/mm3 Hgb 7.6 L (10.1-14.3) gm/dl Hct 25.4 L (30.3-42.9) % MCV 71 L (79-97) fl MCH 21 L (28-32) pg MCHC 30 (30-34) % RDW 24.2 H (13.2-15.2) % Plt Count 385 (140-440) K/mm3 Lymph % (Auto) 32.5 (13.4-35.0) % [place] % (Auto) 8.5 H (0.0-7.3) % Eos % (Auto) 1.5 (0.0-4.3) % Baso % (Auto) 0.9 (0.0-1.8) % Lymph # (Auto) 3.0 (1.2-5.4) K/mm3 [place] # (Auto) 0.8 (0.0-0.8) K/mm3 Eos # (Auto) 0.1 (0.0-0.4) K/mm3 Baso # (Auto) 0.1 (0.0-0.1) K/mm3 Seg Neutrophils % 56.6 (40.0-70.0) % Seg Neutrophils # 5.2 (1.8-7.7) K/mm3 Sodium 139 (137-145) mmol/L Potassium 4.2 (3.6-5.0) mmol/L Chloride 103.3 (98-107) mmol/L Carbon Dioxide 26 (22-30) mmol/L Anion Gap 14 mmol/L BUN 11 (7-17) mg/dL Creatinine 0.7 (0.6-1.2) mg/dL Estimated GFR > 60 ml/min BUN/Creatinine Ratio 16 % Glucose 79 (65-100) mg/dL Calcium 8.8 (8.4-10.2) mg/dL Total Bilirubin 0.20 (0.1-1.2) mg/dL AST 14 (5-40) units/L ALT 11 (7-56) units/L Alkaline Phosphatase 77 (35-129) units/L Total Protein 7.4 (6.3-8.2) g/dL Albumin 4.2 (3.9-5) g/dL Albumin/Globulin Ratio 1.3 % Lipase 19 (13-60) units/L HCG, Quant (0-4) mIU/mL Urine Color Yellow (Yellow) Urine Turbidity Clear (Clear) Urine pH 7.0 (5.0-7.0) Ur Specific [place] 1.021 (1.003-1.030) Urine Protein <15 mg/dl (Negative) mg/dL Urine Glucose (UA) Neg (Negative) mg/dL Urine Ketones Neg (Negative) mg/dL Urine Blood Neg (Negative) Urine Nitrite Neg (Negative) Urine Bilirubin Neg (Negative) Urine Urobilinogen 4.0 (<2.0) mg/dL Ur Leukocyte Esterase Tr (Negative) Urine WBC (Auto) 1.0 (0.0-6.0) /HPF Urine RBC (Auto) 1.0 (0.0-6.0) /HPF U Epithel Cells (Auto) 4.0 (0-13.0) /HPF Urine Bacteria (Auto) 1+ (Negative) /HPF Urine Mucus Few /HPF Urine HCG, Qual Negative (Negative) 06/24/20 Range/Units 23:28 WBC (4.5-11.0) K/mm3 RBC (3.65-5.03) M/mm3 Hgb (10.1-14.3) gm/dl Hct (30.3-42.9) % MCV (79-97) fl MCH (28-32) pg MCHC (30-34) % RDW (13.2-15.2) % Plt Count (140-440) K/mm3 Lymph % (Auto) (13.4-35.0) % [place] % (Auto) (0.0-7.3) % Eos % (Auto) (0.0-4.3) % Baso % (Auto) (0.0-1.8) % Lymph # (Auto) (1.2-5.4) K/mm3 [place] # (Auto) (0.0-0.8) K/mm3 Eos # (Auto) (0.0-0.4) K/mm3 Baso # (Auto) (0.0-0.1) K/mm3 Seg Neutrophils % (40.0-70.0) % Seg Neutrophils # (1.8-7.7) K/mm3 Sodium (137-145) mmol/L Potassium (3.6-5.0) mmol/L Chloride (98-107) mmol/L Carbon Dioxide (22-30) mmol/L Anion Gap mmol/L BUN (7-17) mg/dL Creatinine (0.6-1.2) mg/dL Estimated GFR ml/min BUN/Creatinine Ratio % Glucose (65-100) mg/dL Calcium (8.4-10.2) mg/dL Total Bilirubin (0.1-1.2) mg/dL AST (5-40) units/L ALT (7-56) units/L Alkaline Phosphatase (35-129) units/L Total Protein (6.3-8.2) g/dL Albumin (3.9-5) g/dL Albumin/Globulin Ratio % Lipase (13-60) units/L HCG, Quant < 2 (0-4) mIU/mL Urine Color (Yellow) Urine Turbidity (Clear) Urine pH (5.0-7.0) Ur Specific [place] (1.003-1.030) Urine Protein (Negative) mg/dL Urine Glucose (UA) (Negative) mg/dL Urine Ketones (Negative) mg/dL Urine Blood (Negative) Urine Nitrite (Negative) Urine Bilirubin (Negative) Urine Urobilinogen (<2.0) mg/dL Ur Leukocyte Esterase (Negative) Urine WBC (Auto) (0.0-6.0) /HPF Urine RBC (Auto) (0.0-6.0) /HPF U Epithel Cells (Auto) (0-13.0) /HPF Urine Bacteria (Auto) (Negative) /HPF Urine Mucus /HPF Urine HCG, Qual (Negative) - Radiology Data [facility] [address] [place] [address] Ultrasound Report Signed Patient: SIMIN SALDANA MR#: [id number] : 1995 Acct:[id number] Age/Sex: 24 / F ADM Date: 06/24/20 Loc: ED Attending Dr: Ordering Physician: EDWIN LAURENT NP Date of Service: 06/25/20 Procedure(s): US abdomen complete Accession Number(s): [id number] cc: EDWIN LAURENT NP US abdomen complete INDICATION / CLINICAL INFORMATION: abd pain. COMPARISON: None available. FINDINGS: Liver, spleen and pancreas are unremarkable. Kidneys and abdominal aorta are negative. Gallbladder is not at all well distended and so very poorly imaged. Apparent gallbladder wall thickening is probably due to lack of distention. No large calculi. Common duct is normal in size. IMPRESSION: 1. No definite abnormalities identified. As described, the gallbladder is not at all well studied due to lack of distention. If gallbladder disease is suspected, I would suggest reexamination with the patient n.p.o. for at least 6 hours. Signer Name: Turner Babcock MD Signed: 06/25/2020 1:17 AM Workstation Name: [id number] Transcribed By: TM Dictated By: Turner Babcock MD Electronically Authenticated By: Turner Babcock MD Signed Date/Time: 06/25/20116 DD/ 1 TD/TT: - Medical Decision Making This is a 24-year-old female that presents with abdominal pain mostly secondary gallbladder stones. Patient is stable and was examined by me. There is no abdominal tenderness. Negative signs of symptoms of appendicitis. Labs obta ined. UA obtained. US of abdomen obtained and dictated by the radiologist. Patient is notified of the report with no questions noted by the patient. Vital signs are stable prior to discharge. Patient was also instructed to Follow-up with a primary care doctor in 3-5 days or if symptoms worsen and continue return to emergency room as soon as possible. At time of discharge, the patient does not seem toxic or ill in appearance. No acute signs of distress noted. Patient agrees to discharge treatment plan of care. No further questions noted by the patient. Critical care attestation.: If time is entered above; I have spent that time in minutes in the direct care of this critically ill patient, excluding procedure time. ED Disposition Clinical Impression: Abdominal pain Qualifiers: Abdominal location: right upper quadrant Qualified Code(s): R10.11 - Right upper quadrant pain Disposition: DC-01 TO HOME OR SELFCARE Is pt being admited?: No Does the pt Need Aspirin: No Condition: Stable Instructions: Abdominal Pain (ED) Additional Instructions: Follow-up with a primary care doctor in 3-5 days or if symptoms worsen and continue return to emergency room as soon as possible. Prescriptions: Naproxen 500 mg PO Q12H PRN #12 tablet PRN Reason: Pain , Severe (7-10) Referrals: SPENCER PENNINGTON [Primary Care Provider] - 3-5 Days PRIMARY CAREMD [Referring] - 3-5 Days HILDA MOSCOSO MD [Staff Physician] - 3-5 Days Forms: Work/School Release Form(ED) Time of Disposition: 01:25
--- NOTE | 2020-06-25 01:21 | Ultrasound Report ---
US abdomen complete INDICATION / CLINICAL INFORMATION: abd pain. COMPARISON: None available. FINDINGS: Liver, spleen and pancreas are unremarkable. Kidneys and abdominal aorta are negative. Gallbladder is not at all well distended and so very poorly imaged. Apparent gallbladder wall thicken ing is probably due to lack of distention. No large calculi. Common duct is normal in size. IMPRESSION: 1. No definite abnormalities identified. As described, the gallbladder is not at all well studied due to lack of distention. If gallbladder disease is suspected, I would suggest reexamination with the p atient n.p.o. for at least 6 hours. Signer Name: Turner Babcock MD Signed: 06/25/2020 1:17 AM Workstation Name: [id number]
== END 2020-06-25 01:30 | disposition home or self-care (01) ==
LOC: ED 22:16
DX: R10.11 Right upper quadrant pain (principal); G43.909 Migraine, unspecified, not intractable, without status migrainosus; F17.200 Nicotine dependence, unspecified, uncomplicated; Z98.890 Other specified postprocedural states; Z79.899 Other long term (current) drug therapy
CPT/HCPCS: 36415; 76700; 80053; 81001; 81025; 83690; 84702; 85025